=== PATIENT | male | born 2000 | race Two or more races ===

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

== ENCOUNTER 2024-09-15 20:37 | Emergency (ER) | payer OTHER ==
[2024-09-15 20:45] VITALS: BP 133/92; PULSE 86; RESP 18; TEMP 97.7; BMI 28.5
[2024-09-15] MEDS ORDERED: ONDANSETRON *ODT* 4 MG TABLET ONE (20:56)
[2024-09-15] MEDS ORDERED: MAG HYDROX/AL HYDROX/SIMETH 30 ML UNIT-DOSE CUP ONE (20:56)
[2024-09-15] MEDS: MAG HYDROX/AL HYDROX/SIMETH 30 ML UNIT-DOSE CUP PO ONE (21:00)
[2024-09-15] MEDS: ONDANSETRON *ODT* 4 MG TABLET SL ONE (21:00)
== END 2024-09-15 21:12 | disposition home or self-care (01) ==
LOC: FER 20:37
DX: R11.2 Nausea with vomiting, unspecified (principal); R10.13 Epigastric pain
CPT/HCPCS: 99283-25; Q0162